=== PATIENT | male | born 1985 | race Caucasian/White ===

== ENCOUNTER 2021-12-15 18:19 | Emergency (ER) | payer MEDICAID | END 2021-12-15 20:42 | disposition left against medical advice (07) | LOC: JP.ED 18:19 | DX: Z53.21 Procedure and treatment not carried out due to patient leaving prior to being seen by health care provider (principal) ==

== ENCOUNTER 2022-04-21 19:29 | Emergency (ER) | payer MEDICAID | END 2022-04-21 20:24 | disposition home or self-care (01) | LOC: JP.ED 19:29 | DX: K04.7 Periapical abscess without sinus (principal); F17.210 Nicotine dependence, cigarettes, uncomplicated; Z88.0 Allergy status to penicillin; Z88.8 Allergy status to other drugs, medicaments and biological substances | CPT/HCPCS: 99282; 99283 ==

== ENCOUNTER 2022-06-06 18:59 | Emergency (ER) | payer MEDICAID | END 2022-06-06 20:04 | disposition left against medical advice (07) | LOC: JP.ED 18:59 | DX: Z53.21 Procedure and treatment not carried out due to patient leaving prior to being seen by health care provider (principal) ==